=== PATIENT | male | born 1950 | race Caucasian/White ===

== ENCOUNTER 2020-12-11 15:51 | Observation (INO) ==
--- NOTE | 2020-12-11 16:26 | Emergency Department Note ---
Impression & Plan Artery occlusion, Discoloration of skin of hand, Open wound, hand ED Provider Note NAME: PHUONG CASTILLO AGE: 70 SEX: M : 1950 ARRIVES VIA: Walk-In INFORMANT: Patient, ED PROVIDER(S): Giovani Saleh DO CHIEF COMPLAINT: Right hand wounds and discoloration HPI: Patient is a 70-year-old male who presents the ER for 3 weeks for right second digit numbness. He was seen and evaluated at [place]. He had a CT done which showed ulnar artery occlusion and was sent to [place]. He was discharged from there home. He was placed on a blood thinner which has been taking Eliquis and has not missed any doses. He notes that over the past 4 days he has had more discoloration and is now developing wounds and bruising on the digits. He denies any chest pain shortness of breath nausea vomiting or diarrhea. No other exacerbating or remitting factors. ROS: See above HPI for pertinent positives & negatives. A total of 10 systems re viewed and were otherwise negative. PAST MEDICAL HISTORY:See Below PAST SURGICAL HISTORY:See Below FAMILY HISTORY:See Below SOCIAL HISTORY:See Below HOME MEDICATIONS:See Below ALLERGIES:See Below VITALS:See Below PHYSICAL EXAMINATION: GENERAL: Sitting up in bed, alert, well appearing, well nourished, no distress, non-toxic EYE EXAM: normal conjunctiva. OROPHARYNX: no exudate, no erythema, lips, buccal mucosa, and tongue normal and mucous membranes are moist NECK: supple, no nuchal rigidity, no adenopathy, non-tender LUNGS: Clear to auscultation. Normal chest wall mechanics HEART: no murmurs, S1 normal and S2 normal ABDOMEN: abdomen soft, non-tender, normo-active bowel sounds, no masses, no rebound or guarding. BACK: Back is symmetrical on inspection and there is no deformity, no midline tenderness, no CVA tenderness. SKIN: no rashes and no bruising UPPER EXTREMITIES: Right hand with a pallor discoloration and a slow cap refill. Wound dorsal surface second digit on the lateral aspect as well as bruising and small bruising on the third digit palmar surface distal aspect. Radial pulse 2/4 bilaterally. Unable to appreciate ulnar pulse. Axial artery 2/4. LOWER EXTREMITIES: No pitting edema. NEURO EXAM: Normal sensorium, cranial nerves II-XII grossly intact, normal speech, no gross weakness of arms, no gross weakness of legs. MEDICAL DECISION MAKING: Patient is a 70-year-old male who presents the ER for right hand discoloration with a ulnar artery occlusion work-up as an outpatient placed on [facility]. He notes now has ulcers forming on his hands and then becoming black and blue in the right hand. IV was established blood work is obtained. Labs show no significant leukocytosis or anemia. INR was unremarkable. BMP with a slightly elevated bili at 1.1. LFTs were normal. CK normal. Lipase normal. Lactate normal. UA negative. Covid negative. Ultrasound showed resolution of the clot of the ulnar artery. He did have discoloration wounds within the hand. Discussed with Dr. Graves recommended admission heparin drip and bolus for angio. Patient was updated bedside. Discussed with the hospitalist for further evaluation. Triage Nursing notes reviewed. Limited review of prior medical records performed Vital Signs: reviewed and remarkable for HTN Differential diagnosis: DVT, musculoskeletal, infection, ischemia, arterial occlusion, joint effusion, trauma, lymphedema, idiopathic, CHF, as well as other pathologies. ER treatment provided: See below Diagnostics interpreted by me: Cardiac Monitoring: An order was placed for continuous cardiac monitoring. The monitor shows a rate of 80 with sinus rhythm. Laboratory studies: As stated above and show below. Imaging studies: Arterial scan of the right upper extremity was negative with resolution of the ulnar clot which was seen on the records from [facility]. Consultation(s): Discussed with Dr. Graves who recommended admission and heparin for possible angio Procedures: none Critical Care: I have personally spent 32 minutes of critical care time in the direct management of this patient. This includes bedside care, interpretation of diagnostic studies, and testing, discussion with consultants, patient, and family members, and other required patient management activities. This 32 minutes is in excess of all separately billable procedures. Past Med/Surg History Medical History CAD (coronary artery disease) Dyslipidemia Osteoarthritis Surgical History Hx of cardiac cath 2012-3 stents Family History Other Cancer Coronary heart disease Social History Smoking Status: Never smoker Hx Alcohol Use: No Hx Substance Use: No Preferred Language: Swedish Beliefs That Will Affect Care: None Current Living Situation: Family Other Information That Helps Us Care for You: No Feels Safe at Home: Yes Safety Concerns: Feels Safe At This Time Assistive Devices: Glasses Allergies Allergies Allergy/AdvReac Type Severity Reaction Status Date / Time No Known Allergies Allergy Unverified 12/11/20 17:12 Home Meds Home Medications Medication Instructions Recorded Confirmed apixaban 5 mg tablet (Eliquis) 5 mg PO BID 12/11/20 12/11/20 aspirin 81 mg tablet,delayed 81 mg PO DAILY 12/11/20 12/11/20 release atorvastatin 20 mg tablet 20 mg PO DAILY 12/11/20 12/11/20 cholecalciferol (vitamin D3) 125 125 mcg PO DAILY 12/11/20 12/11/20 mcg (5,000 unit) tablet (Vitamin D3) cilostazol 50 mg tablet 100 mg PO BID 12/11/20 12/11/20 coenzyme Q10 100 mg capsule (Co 100 mg PO DAILY 12/11/20 12/11/20 Q-10) metoprolol succinate 25 mg 25 mg PO DAILY 12/11/20 12/11/20 tablet,extended release 24 hr mometasone 50 mcg/actuation nasal 2 spray INTRANASAL DAILY PRN 12/11/20 12/11/20 spray phenylephrine 5 1 cap PO UD 12/11/20 12/11/20 mg-dextromethorphan 10 mg-acetaminophen 325 mg capsule (Mucinex Sinus-Max Severe Congestion-Pain(DM)) salmon oil-omega-3 fatty acids 2 cap PO DAILY 12/11/20 12/11/20 1,000 mg-200 mg capsule ([place] Oil-1000) turmeric root extract 500 mg 500 mg PO DAILY 12/11/20 12/11/20 capsule vitamin B12 500 mcg-folic acid 400 1 tab PO DAILY 12/11/20 12/11/20 mcg tablet Results & Data (ED) Vital Signs Vital Signs - 24 hr 12/11/20 16:06 12/11/20 16:29 12/11/20 16:31 Temperature 36.0 C L Temperature Source Oral Pulse Rate 82 76 75 Pulse Rate [Left Finger] Pulse Rate from SpO2 Sensor Pulse Rhythm Regular Pulse Rhythm [Left Finger] Respiratory Rate 18 18 20 Respiratory Depth Normal Blood Pressure 141/87 H 153/93 H Blood Pressure [Left Arm] Blood Pressure Mean 105 113 Blood Pressure Mean [Left Arm] Pulse Oximetry 96 96 94 Oxygen Delivery Method Room Air Room Air Sepsis Recent Fever Within 48 Hours No Sepsis New/Unexplained Change in Mental Status N/A Sepsis Action Taken by Nursing No Action Required 12/11/20 17:39 12/11/20 17:40 12/11/20 17:50 Temperature Temperature Source Pulse Rate 75 73 75 Pulse Rate [Left Finger] Pulse Rate from SpO2 Sensor 75 73 73 Pulse Rhythm Pulse Rhythm [Left Finger] Respiratory Rate 17 17 16 Respiratory Depth Blood Pressure Blood Pressure [Left Arm] Blood Pressure Mean Blood Pressure Mean [Left Arm] Pulse Oximetry 96 96 94 Oxygen Delivery Method Sepsis Recent Fever Within 48 Hours Sepsis New/Unexplained Change in Mental Status Sepsis Action Taken by Nursing 12/11/20 17:59 12/11/20 19:02 12/11/20 19:10 Temperature Temperature Source Pulse Rate 77 75 Pulse Rate [Left Finger] 91 H Pulse Rate from SpO2 Sensor 79 80 Pulse Rhythm Pulse Rhythm [Left Finger] Regular Respiratory Rate 16 14 14 Respiratory Depth Blood Pressure Blood Pressure [Left Arm] 145/97 H Blood Pressure Mean Blood Pressure Mean [Left Arm] 113 Pulse Oximetry 94 97 98 Oxygen Delivery Method Sepsis Recent Fever Within 48 Hours Sepsis New/Unexplained Change in Mental Status Sepsis Action Taken by Nursing 12/11/20 19:20 Temperature Temperature Source Pulse Rate 75 Pulse Rate [Left Finger] Pulse Rate from SpO2 Sensor 75 Pulse Rhythm Pulse Rhythm [Left Finger] Respiratory Rate 14 Respiratory Depth Blood Pressure Blood Pressure [Left Arm] Blood Pressure Mean Blood Pressure Mean [Left Arm] Pulse Oximetry 97 Oxygen Delivery Method Sepsis Recent Fever Within 48 Hours Sepsis New/Unexplained Change in Mental Status Sepsis Action Taken by Nursing Laboratory Data Result diagrams: 12/11/20 16:28 12/11/20 16:28 Lab Results 12/11/20 12/11/20 12/11/20 Range/Units 16:28 16:28 16:28 WBC 8.08 (4.8-10.8) K/uL RBC 4.20 L (4.7-6.1) M/uL Hgb 13.5 L (14.0-18.0) g/dL Hct 39.9 L (42-52) % MCV 95.0 (80-100) fL MCH 32.1 (25-34) pg MCHC 33.8 (32-36) g/dL RDW Std Deviation 52.8 H (36.4-46.3) fL RDW Coeff of Azucena 15.1 H (11.5-14.5) % Plt Count 266 (130-400) K/uL MPV 9.2 (7.4-10.4) fL Immature Gran % (Auto) 0.1 % Neut % (Auto) 60.0 % Lymph % (Auto) 23.9 % Snyder % (Auto) 13.5 % Eos % (Auto) 2.1 % Baso % (Auto) 0.4 % Neut # (Auto) 4.85 (1.4-6.5) K/uL Lymph # (Auto) 1.93 (1.2-3.4) K/uL Snyder # (Auto) 1.09 H (0.11-0.59) K/uL Eos # (Auto) 0.17 (0-0.5) K/uL Baso # (Auto) 0.03 (0-0.2) K/uL Immature Gran # (Auto) 0.01 (0.00-0.02) K/uL PT 10.9 (9.0-12.0) Seconds INR 1.1 (0.9-1.1) Sodium 138 (136-145) mmol/L Potassium 3.8 (3.5-5.1) mmol/L Chloride 107 (98-107) mmol/L Carbon Dioxide 26 (21-32) mmol/L Anion Gap 5.0 (3-11) BUN 15 (7-18) mg/dl Creatinine 1.14 (0.6-1.4) mg/dl Est Cr Clr Drug Dosing 65.2 ml/min Est GFR ( Amer) 74.6 ml/min Est GFR (Non-Af Amer) 64.3 ml/min BUN/Creatinine Ratio 12.7 (10-20) Glucose 90 (70-99) mg/dl Lactate (0.4-2.0) mmol/L Calcium 8.7 (8.5-10.1) mg/dl Total Bilirubin 1.1 H (0.2-1) mg/dl AST 23 (15-37) U/L ALT 32 (12-78) U/L Alkaline Phosphatase 81 (45-117) U/L Total Creatine Kinase 238 (39-308) U/L Total Protein 7.1 (6.4-8.2) gm/dl Albumin 3.4 (3.4-5.0) gm/dl Globulin 3.7 (2.5-4.0) gm/dl Albumin/Globulin Ratio 0.9 (0.9-2) Lipase 80 (73-393) U/L COVID-19 Eval Order SARS-CoV-2 (PCR) (Negative) 12/11/20 12/11/20 12/11/20 Range/Units 16:28 17:38 17:38 WBC (4.8-10.8) K/uL RBC (4.7-6.1) M/uL Hgb (14.0-18.0) g/dL Hct (42-52) % MCV (80-100) fL MCH (25-34) pg MCHC (32-36) g/dL RDW Std Deviation (36.4-46.3) fL RDW Coeff of Azucena (11.5-14.5) % Plt Count (130-400) K/uL MPV (7.4-10.4) fL Immature Gran % (Auto) % Neut % (Auto) % Lymph % (Auto) % Snyder % (Auto) % Eos % (Auto) % Baso % (Auto) % Neut # (Auto) (1.4-6.5) K/uL Lymph # (Auto) (1.2-3.4) K/uL Snyder # (Auto) (0.11-0.59) K/uL Eos # (Auto) (0-0.5) K/uL Baso # (Auto) (0-0.2) K/uL Immature Gran # (Auto) (0.00-0.02) K/uL PT (9.0-12.0) Seconds INR (0.9-1.1) Sodium (136-145) mmol/L Potassium (3.5-5.1) mmol/L Chloride (98-107) mmol/L Carbon Dioxide (21-32) mmol/L Anion Gap (3-11) BUN (7-18) mg/dl Creatinine (0.6-1.4) mg/dl Est Cr Clr Drug Dosing ml/min Est GFR ( Amer) ml/min Est GFR (Non-Af Amer) ml/min BUN/Creatinine Ratio (10-20) Glucose (70-99) mg/dl Lactate 0.8 (0.4-2.0) mmol/L Calcium (8.5-10.1) mg/dl Total Bilirubin (0.2-1) mg/dl AST (15-37) U/L ALT (12-78) U/L Alkaline Phosphatase (45-117) U/L Total Creatine Kinase (39-308) U/L Total Protein (6.4-8.2) gm/dl Albumin (3.4-5.0) gm/dl Globulin (2.5-4.0) gm/dl Albumin/Globulin Ratio (0.9-2) Lipase (73-393) U/L COVID-19 Eval Order Covid19 at [facility] SARS-CoV-2 (PCR) NEGATIVE (Negative) Administered Medications Cilostazol (Cilostazol 100 Mg Tab) 100 mg PO BID ANANDA Stop: 01/10/21 21:29 Last Admin: 12/11/20 22:36 Dose: 100 mg Documented by: [id number] Heparin Sodium/Dextrose (Heparin Sodium/Dextrose) 25,000 units in 500 mls @ 20 mls/hr IV .Q24H ANANDA; Protocol Stop: 01/10/21 16:59 Last Titration: 12/11/20 21:04 Dose: 1,000 units/hr, 20 mls/hr Documented by: [id number] Cosigned by: [id number] Admin: 12/11/20 17:58 Dose: 1,000 units/hr, 20 mls/hr Documented by: [id number] Cosigned by: [id number] Discontinued Medications Heparin Sodium (Porcine) (Heparin Sod (Porcine) 1000 Unit/Ml) 1 units IV NOW ONE Stop: 12/11/20 16:57 Last Admin: 12/11/20 17:57 Dose: 4,000 units Documented by: [id number] Cosigned by: [id number] Heparin Sodium/Dextrose (Heparin Iv Adult Wt-Based Low-Dose With Bolus Protocol) 1 ea N/A NOW STA; Protocol Stop: 12/11/20 16:41 Last Admin: 12/11/20 17:58 Dose: Not Given Documented by: [id number] Imaging Data Radiologist's Impression: Duplex Scan Upper Extremity Artery 12/11/20 16:19 ULTRASOUND RIGHT UPPER EXTREMITY ARTERIAL CLINICAL HISTORY: Right arm pain and discoloration. COMPARISON STUDY: No priors. FINDINGS: Real-time grayscale and color Doppler sonography of the arteries of the right upper extremity is performed. The right upper extremity arteries are widely patent. No elevated velocities are identified. Normal Doppler arterial waveforms are seen throughout. Velocities within the right common carotid artery measure up to 76 cm/s. Velocities in the subclavian artery measure 94 cm/s. Velocities within the axillary and brachial arteries measure up to 75 cm/s. The radial and ulnar arteries are patent. The right vertebral artery is patent with normal direction of flow. IMPRESSION: Normal Doppler assessment of the right upper extremity arteries. Electronically signed by: Syed Jon M.D. 12/11/2020 5:41 PM Discharge Plan Visit Data Chief Complaint: Hand Injury/Pain Stated Complaint: R HAND NUMB, HURTING ED Provider: Giovani Saleh Discharge Problem: Artery occlusion, Discoloration of skin of hand, Open wound, hand Patient Disposition: Admitted As Inpatient Discharge Instructions Interventions: ED Discharge Assessment Last Done: 12/11/20 20:30
[2020-12-11] MEDS ORDERED: Heparin IV Adult Wt-Based Low-Dose WITH Bolus Protocol STA (16:40)
[2020-12-11 16:43] LABS: Basophils # (auto) 0.03 K/uL (0-0.2); Basophils % (auto) 0.4 %; Eosinophils # (auto) 0.17 K/uL (0-0.5); Eosinophils % (auto) 2.1 %; Hematocrit (blood only) 39.9 % (42-52); Hemoglobin 13.5 g/dL (14.0-18.0); Immature Granulocytes # (auto) 0.01 K/uL (0.00-0.02); Immature Granulocytes % (auto) 0.1 %; Lymphocytes # (auto) 1.93 K/uL (1.2-3.4); Lymphocytes % (auto) 23.9 %; Mean Corpuscular Hemoglobin 32.1 pg (25-34); Mean Corpuscular Hgb Conc 33.8 g/dL (32-36); Mean Platelet Volume 9.2 fL (7.4-10.4); Monocytes # (auto) 1.09 K/uL (0.11-0.59); Monocytes % (auto) 13.5 %; Neutrophils # (auto) 4.85 K/uL (1.4-6.5); Platelet Count 266 K/uL (130-400); RDW Coefficient of Variation 15.1 % (11.5-14.5); RDW Standard Deviation 52.8 fL (36.4-46.3); White Blood Count 8.08 K/uL (4.8-10.8)
[2020-12-11 16:52] LABS: INR 1.1 (0.9-1.1); Prothrombin Time 10.9 Seconds (9.0-12.0)
[2020-12-11] MEDS ORDERED: HEPARIN SOD (PORCINE) 1000 UNIT/ML IV ONE (16:56)
[2020-12-11 16:59] LABS: Albumin Level 3.4 gm/dl (3.4-5.0); BUN Creatinine Ratio 12.7 (10-20); Calcium 8.7 mg/dl (8.5-10.1); Creatinine Clr Calc Pharmacy 65.2 ml/min; Est GFR (African American) 74.6 ml/min; Est GFR (Non-African American) 64.3 ml/min; Potassium 3.8 mmol/L (3.5-5.1)
[2020-12-11] MEDS ORDERED: HEPARIN SODIUM/DEXTROSE 25,000 UNITS/500 ML BAG IV SCH (17:00)
[2020-12-11 17:02] LABS: Albumin Globulin Ratio 0.9 (0.9-2); Bilirubin,Total 1.1 mg/dl (0.2-1); Globulin 3.7 gm/dl (2.5-4.0); Total Protein 7.1 gm/dl (6.4-8.2)
--- NOTE | 2020-12-11 17:42 | Ultrasound Report ---
ULTRASOUND RIGHT UPPER EXTREMITY ARTERIAL CLINICAL HISTORY: Right arm pain and discoloration. COMPARISON STUDY: No priors. FINDINGS: Real-time grayscale and color Doppler sonography of the arteries of the right upper extremi ty is performed. The right upper extremity arteries are widely patent. No elevated velocities are carlos ntified. Normal Doppler arterial waveforms are seen throughout. Velocities within the right common ca rotid artery measure up to 76 cm/s. Velocities in the subclavian artery measure 94 cm/s. Velocities w ithin the axillary and brachial arteries measure up to 75 cm/s. The radial and ulnar arteries are pat ent. The right vertebral artery is patent with normal direction of flow. IMPRESSION: Normal Doppler assessment of the right upper extremity arteries. Electronically signed by: Syed Jon M.D. 12/11/2020 5:41 PM
--- NOTE | 2020-12-11 19:53 | History & Physical Report ---
Date of Service December 11, 2020 Assessment & Plan (1) Artery occlusion: Plan: Patient is 70-year-old male with PMH CAD, [place] in 2011, s/p stents, dyslipidemia, osteoarthritis presented to ER with complaint of right index finger numbness/pallor. Previously seen at [place] ER and was sent to [place] for ulnar artery occlusion and D/C on Eliquis and cilostazol. Patient states he has not missed doses. ER physician spoke to Vascular surgery who will see patient. Pt started on Heparin IV and being admitted for further treatment and evaluation -Continue IV heparin -Hold home Eliquis -Continue aspirin, cilostazol -N.p.o. midnight -Vascular surgery consult (2) CAD (coronary artery disease): Plan: History [place] 2011, s/p stents. Follows with cardiology in [place] Denies chest pain, SOB -Continue aspirin, metoprolol succinate, atorvastatin DVT Prophylaxis -On IV heparin Full Code as per discussion with pt Follows with Dr Saba in [place] for routine care Pt was seen and care coordinated with Dr Carrera. See addendum History of Present Illness Chief Complaint: Right index finger numbness Primary Care Provider: Derik Saba Patient is 70-year-old male with PMH CAD, [place] in 2011, s/p stents, dyslipidemia, osteoarthritis presented to ER with complaint of right index finger numbness. Patient reports has been having right index finger numbness and he was seen at [place] ER and was sent to [place] for ulnar artery occlusion. Reports he was discharged on Eliquis and cilostazol. Patient states he has not missed doses. He was seen at physical therapy today for left shoulder discomfort from previous fracture and physical therapist but right index finger appeared more pale. Patient does state that he started noticing some redness/bruising like to radial aspect of right distal index finger. Denies any ulcers or discharge. Today patient was seen at PCP and referred to ER. Denies fever/chills, diaphoresis, N/V/D/C, PIZANO, dizziness, syncope, vision changes, neck pain, CP, SOB, orthopnea, palpitations, cough, sore throat, choking, otalgia, rhinorrhea, abdominal pain, other paresthesias, weakness, extremity weakness, extremity edema, rashes, urinary symptoms. ER physician spoke to Vascular surgery who will see patient. Pt started on Heparin IV and being admitted for further treatment and evaluation. Allergies Allergy/AdvReac Type Severity Reaction Status Date / Time No Known Allergies Allergy Unverified 12/11/20 17:12 Home Medications Medication Instructions Recorded Confirmed Type apixaban 5 mg tablet (Eliquis) 5 mg PO BID 12/11/20 12/11/20 History aspirin 81 mg tablet,delayed 81 mg PO DAILY 12/11/20 12/11/20 History release atorvastatin 20 mg tablet 20 mg PO DAILY 12/11/20 12/11/20 History cholecalciferol (vitamin D3) 125 125 mcg PO DAILY 12/11/20 12/11/20 History mcg (5,000 unit) tablet (Vitamin D3) cilostazol 50 mg tablet 100 mg PO BID 12/11/20 12/11/20 History coenzyme Q10 100 mg capsule (Co 100 mg PO DAILY 12/11/20 12/11/20 History Q-10) metoprolol succinate 25 mg 25 mg PO DAILY 12/11/20 12/11/20 History tablet,extended release 24 hr mometasone 50 mcg/actuation nasal 2 spray INTRANASAL DAILY PRN 12/11/20 12/11/20 History spray phenylephrine 5 1 cap PO UD 12/11/20 12/11/20 History mg-dextromethorphan 10 mg-acetaminophen 325 mg capsule (Mucinex Sinus-Max Severe Congestion-Pain(DM)) salmon oil-omega-3 fatty acids 2 cap PO DAILY 12/11/20 12/11/20 History 1,000 mg-200 mg capsule ([place] Oil-1000) turmeric root extract 500 mg 500 mg PO DAILY 12/11/20 12/11/20 History capsule vitamin B12 500 mcg-folic acid 400 1 tab PO DAILY 12/11/20 12/11/20 History mcg tablet Past Med/Surg History Medical History CAD (coronary artery disease) Dyslipidemia Osteoarthritis Surgical History Hx of cardiac cath 2012-3 stents Family History Other Cancer Coronary heart disease Social History Smoking Status: Never smoker Hx Alcohol Use: No Hx Substance Use: No Preferred Language: Occitan Feels Safe at Home: Yes Review of Systems Review of Systems: All systems reviewed & are unremarkable except as noted in HPI & below Physical Exam Physical Exam: General: no distress, WDWN Head: normocephalic, atraumatic Eyes: conjunctiva non-injected, anicteric ENT: normal inspection external ears, nose, mucous membranes moist Neck: supple, trachea midline Lungs: clear, no respiratory distress, no wheezing/rhonchi/rales CV: RRR, no pretibial edema Abd: normal BS, soft, non-tender Ext: no calf tenderness; RUE: index finger with pallor and radial aspect finger with red area, area tender to palpation; radial pulse intact; bilateral thenar eminence atrophy Neuro: A&O x 3, no focal deficits noted, normal affect Skin: warm, dry, R hand as above Results & Data Results & Data ([facility]) Vital Signs (Past 12 Hours) Vital Signs Temp Pulse Pulse Resp BP BP Pulse Ox 12/11/20 19:20 75 14 97 12/11/20 19:10 75 14 98 12/11/20 19:02 77 14 97 12/11/20 17:59 91 H 16 145/97 H 94 12/11/20 17:50 75 16 94 12/11/20 17:40 73 17 96 12/11/20 17:39 75 17 96 12/11/20 16:31 75 20 94 12/11/20 16:29 76 18 153/93 H 96 12/11/20 16:06 36.0 C L 82 18 141/87 H 96 Laboratory Results Short CBC 12/11/20 Range/Units 16:28 WBC 8.08 (4.8-10.8) K/uL Hgb 13.5 L (14.0-18.0) g/dL Hct 39.9 L (42-52) % Plt Count 266 (130-400) K/uL BMP 12/11/20 16:28 Sodium 138 Potassium 3.8 Chloride 107 Carbon Dioxide 26 BUN 15 Creatinine 1.14 Glucose 90 Calcium 8.7 Cardiac Enzymes 12/11/20 Range/Units 16:28 Total Creatine Kinase 238 (39-308) U/L Liver Function 12/11/20 Range/Units 16:28 Total Bilirubin 1.1 H (0.2-1) mg/dl AST 23 (15-37) U/L ALT 32 (12-78) U/L Alkaline Phosphatase 81 (45-117) U/L Albumin 3.4 (3.4-5.0) gm/dl Diagnostic Findings Duplex Scan Upper Extremity Artery 12/11/20 16:19 ULTRASOUND RIGHT UPPER EXTREMITY ARTERIAL CLINICAL HISTORY: Right arm pain and discoloration. COMPARISON STUDY: No priors. FINDINGS: Real-time grayscale and color Doppler sonography of the arteries of the right upper extremity is performed. The right upper extremity arteries are widely patent. No elevated velocities are identified. Normal Doppler arterial waveforms are seen throughout. Velocities within the right common carotid artery measure up to 76 cm/s. Velocities in the subclavian artery measure 94 cm/s. Velocities within the axillary and brachial arteries measure up to 75 cm/s. The radial and ulnar arteries are patent. The right vertebral artery is patent with normal direction of flow. IMPRESSION: Normal Doppler assessment of the right upper extremity arteries. Electronically signed by: Syed Jon M.D. 12/11/2020 5:41 PM Code Status & VTE Plan VTE Prophylaxis Plan VTE Prophylaxis will be ordered: Yes Supervising Physician Co-Signing Physician Notes I saw this patient with the physician culture media laboratory assistant, I participated in the history, physical, review of systems, and physical exam. I reviewed the medications with the patient and the physician culture media laboratory assistant and helped reconcile the medications. I helped take a detailed family and social history as well. I formulated the assessment and plan personally with the physician culture media laboratory assistant and went over it with the patient. Physical Exam Gen-AAO x 3, NAD, Afebrile Head-NCAT, EOMI, PERRLA, Anicteric Sclera, No Posterior Pharyngeal Erythema Neck-Supple, No JVD, No Thyromegaly, No Masses, No LAD, No Bruits Lungs-Clear to Auscultation Bilaterally, No Rales, No Rhonchi, No Wheezing, No Crepitus Chest-No S4, +S1, +S2, No S3, No Murmurs, No Rubs, No Gallops, No Ectopy Abdomen-Soft, Bowel Sounds Present, Non Tender, Non Distended, No Hepatomegaly, No Splenomegaly, No Palpable Masses, No Rebound, No Rigidity, No Guarding Musculoskeletal-Full Range of Motion Bilaterally, No CVAT Extremities-No Cyanosis, No Clubbing, No Edema, Bilat Thenar Atrophy (pr onounced), Mild Ischemic areas R Hand Nuero-Cranial Nerves II-XII grossly intact, Motor WNL, DTRs WNL, Strength WNL, Non Focal Psych-Normal Mood
[2020-12-11] MEDS ORDERED: ACETAMINOPHEN 325 MG TAB PO PRN (21:04)
[2020-12-11] MEDS ORDERED: POLYETHYLENE (MIRALAX) 17 GM PACK PO PRN (21:04)
[2020-12-11 22:00] LABS: Appearance Urine Clear (Clear); Bilirubin Urine Negative (Negative); Blood Urine Negative (Negative); Color Urine Yellow; Glucose Urine UA Negative (Negative); Ketones Urine Negative (Negative); Leukocyte Esterase Urine Negative (Negative); Nitrite Urine Negative (Negative); Protein Urine Negative (Negative); Specific Gravity Urine 1.008 (1.000-1.030); Urobilinogen Urine Negative (Negative); pH Urine 6.5 (4.5-7.5)
[2020-12-11] MEDS: cilostazoL 100 MG TAB PO SCH (22:36)
[2020-12-12 00:38] LABS: Partial Thromboplastin Ratio 1.8
[2020-12-12 00:41] LABS: Partial Thromboplastin Time 47.8 Seconds (21.0-31.0)
[2020-12-12 06:50] LABS: Basophils # (auto) 0.03 K/uL (0-0.2); Basophils % (auto) 0.5 %; Eosinophils # (auto) 0.19 K/uL (0-0.5); Eosinophils % (auto) 3.3 %; Hematocrit (blood only) 38.2 % (42-52); Hemoglobin 12.9 g/dL (14.0-18.0); Immature Granulocytes # (auto) 0.01 K/uL (0.00-0.02); Immature Granulocytes % (auto) 0.2 %; Lymphocytes # (auto) 1.74 K/uL (1.2-3.4); Lymphocytes % (auto) 30.1 %; Mean Corpuscular Hemoglobin 31.9 pg (25-34); Mean Corpuscular Hgb Conc 33.8 g/dL (32-36); Mean Corpuscular Volume 94.3 fL (80-100); Mean Platelet Volume 9.2 fL (7.4-10.4); Monocytes # (auto) 0.91 K/uL (0.11-0.59); Monocytes % (auto) 15.7 %; Neutrophils % (auto) 50.2 %; Platelet Count 242 K/uL (130-400); RDW Coefficient of Variation 15.1 % (11.5-14.5); RDW Standard Deviation 52.3 fL (36.4-46.3); Red Blood Count 4.05 M/uL (4.7-6.1); White Blood Count 5.78 K/uL (4.8-10.8)
[2020-12-12 07:20] LABS: BUN Creatinine Ratio 15.4 (10-20); Calcium 8.7 mg/dl (8.5-10.1); Creatinine Clr Calc Pharmacy 75.9 ml/min; Est GFR (African American) 89.5 ml/min; Est GFR (Non-African American) 77.3 ml/min; Potassium 3.8 mmol/L (3.5-5.1)
[2020-12-12 07:37] LABS: Partial Thromboplastin Ratio 1.8
[2020-12-12 07:45] LABS: Partial Thromboplastin Time 46.8 Seconds (21.0-31.0)
[2020-12-12] MEDS: cilostazoL 100 MG TAB PO SCH (08:47)
[2020-12-12] MEDS ORDERED: METOPROLOL SUCC 25MG EXT REL TAB PO SCH (09:00)
[2020-12-12] MEDS ORDERED: CHOLECALCIFEROL 1,000 UNITS 25 MCG TAB PO SCH (09:00)
[2020-12-12] MEDS ORDERED: NON-FORMULARY MEDICATION (Vitamin B12-Folic Acid 500-400 mcg Tablet) PO SCH (09:00)
[2020-12-12] MEDS ORDERED: ASPIRIN 81 MG ECTAB PO SCH (09:00)
[2020-12-12] MEDS ORDERED: ATORVASTATIN 20 MG TAB PO SCH (09:00)
--- NOTE | 2020-12-12 13:20 | Electrocardiogram Report ---
Test Reason : Blood Pressure : / mmHG Vent. Rate : 073 BPM Atrial Rate : 073 BPM P-R Int : 184 ms QRS Dur : 088 ms QT Int : 386 ms P-R-T Axes : 062 -37 043 degrees QTc Int : 425 ms Normal sinus rhythm Left axis deviation Inferior infarct , age undetermined Abnormal ECG No previous ECGs available Confirmed by Lobo Lang [id number]) on 12/12/2020 1:20:10 PM Referred By: Derik Saba Confirmed By:Phi Lang
--- NOTE | 2020-12-12 13:32 | History & Physical Report ---
Date of Service December 12, 2020 Assessment & Plan (1) Discoloration of skin of hand: Plan: This patient appears to have a mild amount of ischemia of the right hand. It is improved over the last 12 hours to the point where he has no pain or numbness. His ulnar and radial arteries are patent down to the wrist. I believe this time he would benefit from arteriography to get a better idea of the patency of the palmar arch. Being that he is improved he would like to have this done as an outpatient. I told him we could send him home on his Eliquis and do the arteriogram this coming Wednesday. If his hand worsens again he was instructed to call my office. The arteriogram is recommended to look for ulcerative lesions more proximally and which may have caused embolization to the right hand. He did claim that he had an echo done in the fall of last year. He claims that was normal but he may require a repeat echo at this point looking for source of embolization. Thank you very much for letting us participate in the care of this patient. Admission and Anticipated Discharge Date Admission Date: December 11, 2020 History of Present Illness Chief Complaint: Pain and pallor of the right hand. Primary Care Provider: Derik Alexandracynthia This is a 70-year-old gentleman who suffered a left shoulder injury proxy 4 to 6 weeks ago. At that time he needed to use a walker and a cane. He noticed once he was using the prosthetic that he developed pallor and pain of the right hand. Over time he has had development of small purplish areas on his first second and fourth fingers. He presented to the emergency room yesterday with increased pain in the hand and pallor color. He also had some numbness in the fingertips. Ultrasound at that time showed the ulnar artery patent down to the wrist level. He was seen in the past for this a few weeks ago at another Hospital and was diagnosed with an occluded ulnar artery. After that he thought it may have been getting worse. He was then went to [place] at which point he was followed conservatively. No intervention was done. He was started on Eliquis. He has been on Eliquis since that time. Today he claims the pain is all gone. He claims the hand feels better and the numbness is improved. Allergies Allergy/AdvReac Type Severity Reaction Status Date / Time No Known Allergies Allergy Unverified 12/11/20 17:12 Home Medications Medication Instructions Recorded Confirmed Type apixaban 5 mg tablet (Eliquis) 5 mg PO BID 12/11/20 12/11/20 History aspirin 81 mg tablet,delayed 81 mg PO DAILY 12/11/20 12/11/20 History release atorvastatin 20 mg tablet 20 mg PO DAILY 12/11/20 12/11/20 History cholecalciferol (vitamin D3) 125 125 mcg PO DAILY 12/11/20 12/11/20 History mcg (5,000 unit) tablet (Vitamin D3) cilostazol 50 mg tablet 100 mg PO BID 12/11/20 12/11/20 History coenzyme Q10 100 mg capsule (Co 100 mg PO DAILY 12/11/20 12/11/20 History Q-10) metoprolol succinate 25 mg 25 mg PO DAILY 12/11/20 12/11/20 History tablet,extended release 24 hr mometasone 50 mcg/actuation nasal 2 spray INTRANASAL DAILY PRN 12/11/20 12/11/20 History spray phenylephrine 5 1 cap PO UD 12/11/20 12/11/20 History mg-dextromethorphan 10 mg-acetaminophen 325 mg capsule (Mucinex Sinus-Max Severe Congestion-Pain(DM)) salmon oil-omega-3 fatty acids 2 cap PO DAILY 12/11/20 12/11/20 History 1,000 mg-200 mg capsule ([place] Oil-1000) turmeric root extract 500 mg 500 mg PO DAILY 12/11/20 12/11/20 History capsule vitamin B12 500 mcg-folic acid 400 1 tab PO DAILY 12/11/20 12/11/20 History mcg tablet Past Med/Surg History Medical History CAD (coronary artery disease) Dyslipidemia Osteoarthritis Surgical History Hx of cardiac cath 2012-3 stents Family History Other Cancer Coronary heart disease Social History Smoking Status: Never smoker Hx Alcohol Use: No Hx Substance Use: No Preferred Language: Telugu Beliefs That Will Affect Care: None Current Living Situation: Family Other Information That Helps Us Care for You: No Feels Safe at Home: Yes Safety Concerns: Feels Safe At This Time Assistive Devices: Glasses Review of Systems All systems reviewed & are unremarkable except as noted in HPI & below Physical Exam Constitutional: WD/WN, vitals as above Respiratory: normal respiratory effort, lungs clear to auscultation Cardiovascular: RRR, no murmur, no edema Vessels: femoral pulses present, radial pulses present (Bilaterally) and ulnar pulses present (Bilaterally); no carotid bruit Extremities: + abnormal capillary refill (Slightly decreased in the right hand) and no edema Gastrointestinal (Abdomen): Inspection/Auscultation: abdomen normal to inspection Percussion/Palpation: abdomen soft Musculoskeletal: Extremities: strength 5/5 throughout; + extremities abnormal to inspection (Right hand is slightly pale compared to the left. ) Neurologic: CN's II-XI intact bilaterally and moves all extremities Psychiatric: Orientation: alert and oriented x 3 Results & Data ([facility]) Vital Signs (Past 12 Hours) Vital Signs Temp Pulse Resp BP Pulse Ox 12/12/20 08:12 36.6 C 78 16 142/89 H 93 Code Status & VTE Plan VTE Prophylaxis Plan VTE Prophylaxis will be ordered: Yes
--- NOTE | 2020-12-12 13:37 | Consultation ---
Date of Consultation December 12, 2020 History of Present Illness Attending Physician: Avi Castillo MD History of Present Illness Date of Service December 12, 2020 Assessment & Plan (1) Discoloration of skin of hand: Plan: This patient appears to have a mild amount of ischemia of the right hand. It is improved over the last 12 hours to the point where he has no pain or numbness. His ulnar and radial arteries are patent down to the wrist. I believe this time he would benefit from arteriography to get a better idea of the patency of the palmar arch. Being that he is improved he would like to have this done as an outpatient. I told him we could send him home on his Eliquis and do the arteriogram this coming Wednesday. If his hand worsens again he was instructed to call my office. The arteriogram is recommended to look for ulcerative lesions more proximally and which may have caused embolization to the right hand. He did claim that he had an echo done in the fall of last year. He claims that was normal but he may require a repeat echo at this point looking for source of embolization. Thank you very much for letting us participate in the care of this patient. Admission and Anticipated Discharge Date Admission Date: December 11, 2020 History of Present Illness Chief Complaint: Pain and pallor of the right hand. Primary Care Provider: Derik Saba This is a 70-year-old gentleman who suffered a left shoulder injury proxy 4 to 6 weeks ago. At that time he needed to use a walker and a cane. He noticed once he was using the prosthetic that he developed pallor and pain of the right hand. Over time he has had development of small purplish areas on his first second and fourth fingers. He presented to the emergency room yesterday with increased pain in the hand and pallor color. He also had some numbness in the fingertips. Ultrasound at that time showed the ulnar artery patent down to the wrist level. He was seen in the past for this a few weeks ago at another Hospital and was diagnosed with an occluded ulnar artery. After that he thought it may have been getting worse. He was then went to [place] at which point he was followed conservatively. No intervention was done. He was started on Eliquis. He has been on Eliquis since that time. Today he claims the pain is all gone. He claims the hand feels better and the numbness is improved. Allergies Allergy/AdvReac Type Severity Reaction Status Date / Time No Known Allergies Allergy Unverified 12/11/20 17:12 Home Medications Medication Instructions Recorded Confirmed Type apixaban 5 mg tablet (Eliquis) 5 mg PO BID 12/11/20 12/11/20 History aspirin 81 mg tablet,delayed 81 mg PO DAILY 12/11/20 12/11/20 History release atorvastatin 20 mg tablet 20 mg PO DAILY 12/11/20 12/11/20 History cholecalciferol (vitamin D3) 125 125 mcg PO DAILY 12/11/20 12/11/20 History mcg (5,000 unit) tablet (Vitamin D3) cilostazol 50 mg tablet 100 mg PO BID 12/11/20 12/11/20 History coenzyme Q10 100 mg capsule (Co 100 mg PO DAILY 12/11/20 12/11/20 History Q-10) metoprolol succinate 25 mg 25 mg PO DAILY 12/11/20 12/11/20 History tablet,extended release 24 hr mometasone 50 mcg/actuation nasal 2 spray INTRANASAL DAILY PRN 12/11/20 12/11/20 History spray phenylephrine 5 1 cap PO UD 12/11/20 12/11/20 History mg-dextromethorphan 10 mg-acetaminophen 325 mg capsule (Mucinex Sinus-Max Severe Congestion-Pain(DM)) salmon oil-omega-3 fatty acids 2 cap PO DAILY 12/11/20 12/11/20 History 1,000 mg-200 mg capsule ([place] Oil-1000) turmeric root extract 500 mg 500 mg PO DAILY 12/11/20 12/11/20 History capsule vitamin B12 500 mcg-folic acid 400 1 tab PO DAILY 12/11/20 12/11/20 History mcg tablet Past Med/Surg History Medical History CAD (coronary artery disease) Dyslipidemia Osteoarthritis Surgical History Hx of cardiac cath 2012-3 stents Family History Other Cancer Coronary heart disease Social History Smoking Status: Never smoker Hx Alcohol Use: No Hx Substance Use: No Preferred Language: Cape Verdean Beliefs That Will Affect Care: None Current Living Situation: Family Other Information That Helps Us Care for You: No Feels Safe at Home: Yes Safety Concerns: Feels Safe At This Time Assistive Devices: Glasses Review of Systems All systems reviewed & are unremarkable except as noted in HPI & below Physical Exam Constitutional: WD/WN, vitals as above Respiratory: normal respiratory effort, lungs clear to auscultation Cardiovascular: RRR, no murmur, no edema Vessels: femoral pulses present, radial pulses present (Bilaterally) and ulnar pulses present (Bilaterally); no carotid bruit Extremities: + abnormal capillary refill (Slightly decreased in the right hand) and no edema Gastrointestinal (Abdomen): Inspection/Auscultation: abdomen normal to inspection Percussion/Palpation: abdomen soft Musculoskeletal: Extremities: strength 5/5 throughout; + extremities abnormal to inspection (Right hand is slightly pale compared to the left. ) Neurologic: CN's II-XI intact bilaterally and moves all extremities Psychiatric: Orientation: alert and oriented x 3 Results & Data ([facility]) Vital Signs (Past 12 Hours) Vital Signs Temp Pulse Resp BP Pulse Ox 12/12/20 08:12 36.6 C 78 16 142/89 H 93 Code Status & VTE Plan VTE Prophylaxis Plan VTE Prophylaxis will be ordered: Yes Allergies Allergy/AdvReac Type Severity Reaction Status Date / Time No Known Allergies Allergy Unverified 12/11/20 17:12 Home Medications Medication Instructions Recorded Confirmed Type apixaban 5 mg tablet (Eliquis) 5 mg PO BID 12/11/20 12/11/20 History aspirin 81 mg tablet,delayed 81 mg PO DAILY 12/11/20 12/11/20 History release atorvastatin 20 mg tablet 20 mg PO DAILY 12/11/20 12/11/20 History cholecalciferol (vitamin D3) 125 125 mcg PO DAILY 12/11/20 12/11/20 History mcg (5,000 unit) tablet (Vitamin D3) cilostazol 50 mg tablet 100 mg PO BID 12/11/20 12/11/20 History coenzyme Q10 100 mg capsule (Co 100 mg PO DAILY 12/11/20 12/11/20 History Q-10) metoprolol succinate 25 mg 25 mg PO DAILY 12/11/20 12/11/20 History tablet,extended release 24 hr mometasone 50 mcg/actuation nasal 2 spray INTRANASAL DAILY PRN 12/11/20 12/11/20 History spray phenylephrine 5 1 cap PO UD 12/11/20 12/11/20 History mg-dextromethorphan 10 mg-acetaminophen 325 mg capsule (Mucinex Sinus-Max Severe Congestion-Pain(DM)) salmon oil-omega-3 fatty acids 2 cap PO DAILY 12/11/20 12/11/20 History 1,000 mg-200 mg capsule ([place] Oil-1000) turmeric root extract 500 mg 500 mg PO DAILY 12/11/20 12/11/20 History capsule vitamin B12 500 mcg-folic acid 400 1 tab PO DAILY 12/11/20 12/11/20 History mcg tablet Patient History Medical History CAD (coronary artery disease) Dyslipidemia Osteoarthritis Surgical History Hx of cardiac cath 2012-3 stents Family History Other Cancer Coronary heart disease Social History Smoking Status: Never smoker Hx Alcohol Use: No Hx Substance Use: No Preferred Language: Cape Verdean Beliefs That Will Affect Care: None Current Living Situation: Family Other Information That Helps Us Care for You: No Feels Safe at Home: Yes Safety Concerns: Feels Safe At This Time Assistive Devices: None Results & Data ([facility]) Vital Signs (Past 12 Hours) Vital Signs Temp Pulse Resp BP Pulse Ox 12/12/20 08:12 36.6 C 78 16 142/89 H 93
--- NOTE | 2020-12-12 14:12 | Communication Note ---
Date of Service: December 12, 2020 Code 44 attestation: He is a 70-year-old male was in bed with ischemic changes right hand which improved subsequently and was evaluated by vascular surgery. He did have good ulnar and radial pulses on the left side and recommended to have outpatient arteriogram for further evaluation if needed. He was managed appropriately by the attending physician. His chart, labs, EKG and imaging studies reviewed. By [facility] guidelines, a determination that the admission or continued stay is not medically necessary has been made by a member of the UR committee and a physician for this hospital stay, therefore a Code 44 will be completed and the Inpatient admission will be changed to outpatient. Dr Leila Martin Member UR Committee
--- NOTE | 2020-12-12 19:39 | Discharge Summary ---
Date of Service December 12, 2020 Admission HPI Per Admitting Provider This is a 70-year-old gentleman who suffered a left shoulder injury proxy 4 to 6 weeks ago. At that time he needed to use a walker and a cane. He noticed once he was using the prosthetic that he developed pallor and pain of the right hand. Over time he has had development of small purplish areas on his first second and fourth fingers. He presented to the emergency room yesterday with increased pain in the hand and pallor color. He also had some numbness in the fingertips. Ultrasound at that time showed the ulnar artery patent down to the wrist level. He was seen in the past for this a few weeks ago at another Hospital and was diagnosed with an occluded ulnar artery. After that he thought it may have been getting worse. He was then went to [place] at which point he was followed conservatively. No intervention was done. He was started on Eliquis. He has been on Eliquis since that time. Today he claims the pain is all gone. He claims the hand feels better and the numbness is improved. Admission Exam Per Admitting Provider Constitutional: WD/WN, vitals as above Respiratory: normal respiratory effort, lungs clear to auscultation Cardiovascular: RRR, no murmur, no edema Vessels: femoral pulses present, radial pulses present (Bilaterally) and ulnar pulses present (Bilaterally); no carotid bruit Extremities: + abnormal capillary refill (Slightly decreased in the right hand) and no edema Gastrointestinal (Abdomen): Inspection/Auscultation: abdomen normal to inspection Percussion/Palpation: abdomen soft Musculoskeletal: Extremities: strength 5/5 throughout; + extremities abnormal to inspection (Right hand is slightly pale compared to the left. ) Neurologic: CN's II-XI intact bilaterally and moves all extremities Psychiatric: Orientation: alert and oriented x 3 Principal Diagnosis Ischemia Rt hand Discharge Exam GENERAL: Alert and oriented x3. NAD, on RA. HEENT: No pallor, no icterus. Pupils equal, round and reactive to light. Oral mucosa moist. NECK: No JVD, no neck masses. HEART: S1 and S2 heard. Regular rate and rhythm. No murmur, no gallop. RESPIRATORY SYSTEM: Normal AP diameter. No accessory muscle use. No wheezing, no crackles. ABDOMEN: Soft, bowel sounds present, nontender, no distention. CENTRAL NERVOUS SYSTEM: Alert and oriented x3. No facial droop. Speech is clear. Obeys simple commands. Moves extremities. EXTREMITIES: No edema, no erythema seen trength 5/5 throughout; + extremities abnormal to inspection (Right hand is slightly pale compared to the left.. Discharge Data Allergies Allergy/AdvReac Type Severity Reaction Status Date / Time No Known Allergies Allergy Unverified 12/11/20 17:12 Consultations 12/11/20 18:32 ED Decision to Admit Stat 12/11/20 21:04 Consult Vascular Surgery Routine Procedures Performed Operation Date: 12/13/20 08:00 <No data on this case meets the specified criteria> Ordered Studies 12/11/20 16:19 US arterial duplex UE RT Stat Hospital Course (1) Discoloration of skin of hand: 70-year-old male with PMH of CAD, dyslipidemia, LISETH, arterial occlusion, recent left shoulder injury 4 to 6-week ago came in with complaint of pallor and pain in his right hand fingers which are progressive in nature. He had recently been diagnosed with clot in his right wrist and was started on Eliquis. Vascular surgery evaluated him while he was in the hospital. While in hospital he was proven IV heparin drip. He did have good ulnar and radial pulses on the right side and was recommended to have outpatient arteriogram for further evaluation by the vascular surgery team. Is being discharged homeself care. Following instructions were communicated at the time of discharge: f/u with you vascular surgeon as scheduled. f/u with your PCP in a week's time. Patient is scheduled for a right upper extremity arteriogram this coming Wednesday. May office will contact him with details Call my office at [phone] if your hand worsens again. By CMS guidelines, a determination that the admission or continued stay is not medically necessary has been made by a member of the UR committee and a physician for this hospital stay, therefore a Code 44 will be completed and the Inpatient admission will be changed to outpatient. Total Time Total Time Spent Total Time Spent (In Minutes): 35 Discharge Plan Discharge Items Patient Disposition: Home - Self-Care Reason For Visit: ULNER ARTERY OCCLUSION Discharge Diagnosis: Ischemia Rt hand Activity: Resume your previous activity Non-emergency contact: Primary Care Provider Call non-emergency contact if: you have any medication questions Follow-up/Referrals: Derik Saba [Primary Care Provider] - 12/16/20 11:15 am Andrew Graves MD [Physician] - 12/18/20 (Call my office with any questions [phone] We will be contacting you with details for you angiogram.) Diet: Heart Healthy Caroline Attending Provider Instructions: f/u with you vascular surgeon as scheduled. f/u with your PCP in a week's time. Caroline [employer] Provider Instructions: Patient is scheduled for a right upper extremity arteriogram this coming Wednesday. May office will contact him with details Call my office at [phone] if your hand worsens again. Pending Studies at Discharge: No Stand-Alone Forms: My [facility] [employer], Smoking Cessation Medications and DC Order Prescriptions: Continued cilostazol 50 mg tablet 100 mg PO BID RF: 0 Eliquis 5 mg tablet 5 mg PO BID RF: 0 metoprolol succinate 25 mg tablet extended release 24 hr 25 mg PO DAILY RF: 0 atorvastatin 20 mg tablet 20 mg PO DAILY RF: 0 aspirin 81 mg Tablet,Delayed Release (Dr/Ec) 81 mg PO DAILY RF: 0 coenzyme Q10 [Co Q-10] 100 mg Capsule 100 mg PO DAILY RF: 0 Mucinex Sinus-Max Cng-Pain(DM) 5-10-325 mg Capsule 1 cap PO UD RF: 0 vitamin [id number] acid 500-400 mcg Tablet 1 tab PO DAILY RF: 0 mometasone 50 mcg/actuation spray,non-aerosol 2 spray INTRANASAL DAILY PRN (Reason: Congestion) RF: 0 [place] Oil-1000 1,000-200 mg Capsule 2 cap PO DAILY RF: 0 cholecalciferol (vitamin D3) [Vitamin D3] 125 mcg (5,000 unit) Tablet 125 mcg PO DAILY RF: 0 turmeric root extract 500 mg Capsule 500 mg PO DAILY RF: 0 Discharge Orders: Discharge Order (Routine); Ordered 12/12/20 Ordered By: Avi Bautista/Other Patient Handouts: Exercise for a Healthier Heart Admission Data Admit Date/Time: 12/11/20 19:38 Attending Provider: Avi Castillo Admit Provider: Chandler Carrera Primary Care Provider: Derik Saba Other Providers: Chandler Carrera ; Andrew Graves Other Interventions: Discharge Summary Assessment (RN) Last Done: 12/12/20 15:23
== END 2020-12-12 17:03 | disposition home or self-care (01) ==
LOC: ED 15:51 → SUATTDRO 19:38 → 3W 19:38 → INTOOBSV 19:38 → 3W 20:30